=== PATIENT | male | born 1955 | race African-American/Black ===

== ENCOUNTER 2020-03-12 20:48 | Inpatient (IN) | payer MEDICARE, MEDICAID ==
[~2020-03-12] VITALS: Ht 172.7 cm; Wt 72.6 kg
[2020-03-12 21:11] LABS: BASOPHILS % 0.9 % (0.0-2.0); EOSINOPHILS % 14.3 % (0.0-5.0); HEMOGLOBIN. 9.5 g/dL (14.0-18.0); MEAN CORPUSCULAR HEMOGLOBIN 33.3 pg (28.0-32.0); MEAN CORPUSCULAR VOLUME 94.5 fL (80.0-94.0); MEAN PLATELET VOLUME 10.2 fl (7.4-10.4); MONOCYTES % 9.3 % (2.0-8.0); NEUTROPHILS % 63.5 % (40.0-76.0); PLATELET 105 x1000/uL (130-400); RED BLOOD CELL COUNT 2.86 mill/uL (4.7-6.1); RED CELL DISTRIBUTION WIDTH 17.5 % (11.6-14.6)
[2020-03-12 21:17] LABS: CHLORIDE 102 mEq/L (98-107)
[2020-03-12 21:19] LABS: INR 1.1; PROTHROMBIN TIME 12.1 sec (9.6-11.0)
[2020-03-12] MEDS ORDERED: ASPIRIN 81MG TABLET PO ONE (21:45)
[2020-03-12] MEDS ORDERED: MORPHINE SULFATE 2 MG/ML CPJ (NOT FOR IM USE) IV PRN (23:15)
[2020-03-12] MEDS ORDERED: DEXTROSE 50% WATER 50ML SYRINGE IV PRN (23:15)
[2020-03-12] MEDS ORDERED: DOCUSATE SODIUM 100MG CAPSULE PO PRN (23:15)
[2020-03-12] MEDS ORDERED: ACETAMINOPHEN 325MG TABLET PO PRN (23:15)
[2020-03-12] MEDS ORDERED: GUAIFENESIN 200MG/10ML SUGAR FREE UDC PO PRN (23:15)
[2020-03-12] MEDS ORDERED: LORAZEPAM 2MG/ML CPJ IV PRN (23:15)
[2020-03-12] MEDS ORDERED: MAGNESIUM/ALUMINUM HYDROXIDE/SIMETHICONE 30ML UDC PO PRN (23:15)
[2020-03-12] MEDS ORDERED: HYDROCODONE/ACETAMINOPHEN 10/325MG TABLET PO PRN (23:15)
[2020-03-12] MEDS ORDERED: DIPHENHYDRAMINE 50MG/ML VIAL IV PRN (23:15)
[2020-03-12] MEDS ORDERED: ONDANSETRON HCL 4MG/2ML INJ IV PRN (23:15)
[2020-03-12] MEDS ORDERED: HYDRALAZINE 20MG/ML VIAL IV PRN (23:15)
[2020-03-12] MEDS ORDERED: IPRATROPIUM/ALBUTEROL 0.5-3(2.5)MG/3ML NEB NEB PRN (23:15)
[2020-03-12 23:50] VITALS: BP 138/87
[2020-03-13] VITALS: BP 138/87
[2020-03-13] MEDS ORDERED: POTASSIUM CHLORIDE 20MEQ TABLET SR PO NR (01:00)
[2020-03-13 04:00] VITALS: BP 177/86
[2020-03-13] MEDS: SODIUM CHLORIDE 0.9% INJ 3ML FLUSH IVF SCH ×3 (05:08→22:14)
[2020-03-13 05:52] LABS: HEMATOCRIT. 24.9 % (42.0-52.0); HEMOGLOBIN. 8.8 g/dL (14.0-18.0); MEAN CORPUSCULAR HEMOGLOBIN 33.3 pg (28.0-32.0); MEAN CORPUSCULAR VOLUME 94.8 fL (80.0-94.0); MEAN PLATELET VOLUME 10.4 fl (7.4-10.4); PLATELET 89 x1000/uL (130-400); RED BLOOD CELL COUNT 2.63 mill/uL (4.7-6.1)
[2020-03-13 05:58] LABS: CHLORIDE 103 mEq/L (98-107)
[2020-03-13 06:08] LABS: CREATINE KINASE 90 IU/L (39-308)
[2020-03-13 06:11] LABS: CREATINE KINASE MB FRACTION 2.2 ng/mL (0.5-3.6)
[2020-03-13] MEDS: BLOOD SUGAR DIAGNOSTIC STRIP TEST SCH ×4 (06:53→21:57)
[2020-03-13] MEDS: INSULIN LISPRO 100 UNITS/ML SUBCUT SCH ×4 (07:37→22:12)
[2020-03-13] MEDS: ENOXAPARIN 30MG/0.3ML SYR SUBCUT SCH (08:41)
[2020-03-13] MEDS ORDERED: SEVE800T8 MT (09:52)
[2020-03-13] MEDS ORDERED: HYDR100T26 PO (09:52)
[2020-03-13] MEDS ORDERED: ASPI81TA47 PO (09:53)
[2020-03-13] MEDS ORDERED: FOLI0.8T23 MT (09:54)
[2020-03-13] MEDS ORDERED: FOLI0.8T42 MT (09:54)
[2020-03-13] MEDS ORDERED: ISOS20TA8 MT (09:54)
[2020-03-13] MEDS ORDERED: AMLO10TA80 PO (09:55)
[2020-03-13] MEDS ORDERED: LISI40TA4 PO (09:55)
[2020-03-13 11:48] LABS: PLATELET ESTIMATE SLIGHTLY DECREASED
[2020-03-13 12:00] VITALS: BP 182/92
[2020-03-13] MEDS: LISINOPRIL 40MG TABLET PO SCH (12:47)
[2020-03-13] MEDS: ASPIRIN 81MG EC TABLET PO SCH (12:47)
[2020-03-13] MEDS: FOLIC ACID/VITAMIN B COMP W-C TABLET PO SCH (12:47)
[2020-03-13] MEDS: CLONIDINE 0.1MG TABLET PO PRN (12:47)
[2020-03-13] MEDS: AMLODIPINE 10MG TABLET PO SCH (12:48)
[2020-03-13] MEDS: SEVELAMER CARBONATE 800 MG TABLET PO SCH ×2 (12:48→17:09)
[2020-03-13] MEDS: HYDRALAZINE HCL 100MG TABLET PO SCH ×2 (13:28→22:13)
[2020-03-13] MEDS: ISOSORBIDE DINITRATE 20MG TABLET PO SCH ×2 (13:28→17:09)
[2020-03-13 14:34] VITALS: BP_SYST 134; BP_SYST 171; BP_DIAS 101; BP_DIAS 82
[2020-03-13 16:00] VITALS: BP 163/79
[2020-03-13 20:00] VITALS: BP 155/73
[2020-03-14] VITALS: BP 164/85
[2020-03-14 04:00] VITALS: BP 191/60
[2020-03-14] MEDS: HYDRALAZINE HCL 100MG TABLET PO SCH ×3 (06:49→21:52)
[2020-03-14] MEDS: SODIUM CHLORIDE 0.9% INJ 3ML FLUSH IVF SCH ×2 (06:49→21:51)
[2020-03-14] MEDS: INSULIN LISPRO 100 UNITS/ML SUBCUT SCH ×3 (06:59→21:00)
[2020-03-14] MEDS: BLOOD SUGAR DIAGNOSTIC STRIP TEST SCH ×3 (06:59→21:00)
[2020-03-14 08:00] VITALS: BP 177/89
[2020-03-14] MEDS: SEVELAMER CARBONATE 800 MG TABLET PO SCH ×2 (10:26→16:29)
[2020-03-14] MEDS: AMLODIPINE 10MG TABLET PO SCH (10:28)
[2020-03-14] MEDS: ASPIRIN 81MG EC TABLET PO SCH (10:29)
[2020-03-14] MEDS: ISOSORBIDE DINITRATE 20MG TABLET PO SCH ×2 (10:30→16:29)
[2020-03-14] MEDS: FOLIC ACID/VITAMIN B COMP W-C TABLET PO SCH (10:30)
[2020-03-14] MEDS: LISINOPRIL 40MG TABLET PO SCH (10:31)
[2020-03-14] MEDS: ENOXAPARIN 30MG/0.3ML SYR SUBCUT SCH (10:36)
[2020-03-14 12:00] VITALS: BP 154/87
[2020-03-14 16:00] VITALS: BP 173/70
[2020-03-14 16:57] LABS: BASOPHILS % 1.1 % (0.0-2.0); EOSINOPHILS % 13.7 % (0.0-5.0); HEMATOCRIT. 26.7 % (42.0-52.0); HEMOGLOBIN. 9.2 g/dL (14.0-18.0); LYMPHOCYTES % 13.4 % (20.0-50.0); MEAN PLATELET VOLUME 10.8 fl (7.4-10.4); MONOCYTES % 11.6 % (2.0-8.0); NEUTROPHILS % 60.2 % (40.0-76.0); PLATELET 97 x1000/uL (130-400); RED BLOOD CELL COUNT 2.79 mill/uL (4.7-6.1)
[2020-03-14 20:42] VITALS: BP 161/80
[2020-03-15] VITALS (7 sets, daily range): BP systolic 156–178; BP diastolic 79–94
[2020-03-15 06:00] LABS: BASOPHILS % 1.3 % (0.0-2.0); EOSINOPHILS % 14.9 % (0.0-5.0); HEMATOCRIT. 25.7 % (42.0-52.0); LYMPHOCYTES % 13.9 % (20.0-50.0); MEAN CORPUSCULAR HEMOGLOBIN 33.1 pg (28.0-32.0); MEAN CORPUSCULAR VOLUME 94.5 fL (80.0-94.0); MEAN PLATELET VOLUME 10.3 fl (7.4-10.4); MONOCYTES % 10.4 % (2.0-8.0); NEUTROPHILS % 59.5 % (40.0-76.0); PLATELET 95 x1000/uL (130-400); RED BLOOD CELL COUNT 2.73 mill/uL (4.7-6.1); RED CELL DISTRIBUTION WIDTH 18.1 % (11.6-14.6)
[2020-03-15] MEDS: SODIUM CHLORIDE 0.9% INJ 3ML FLUSH IVF SCH ×3 (06:00→22:11)
[2020-03-15] MEDS: HYDRALAZINE HCL 100MG TABLET PO SCH ×3 (06:07→22:11)
[2020-03-15] MEDS: BLOOD SUGAR DIAGNOSTIC STRIP TEST SCH ×4 (06:07→20:51)
[2020-03-15] MEDS: INSULIN LISPRO 100 UNITS/ML SUBCUT SCH ×4 (07:07→20:51)
[2020-03-15] MEDS: SEVELAMER CARBONATE 800 MG TABLET PO SCH ×3 (08:47→17:58)
[2020-03-15] MEDS: ASPIRIN 81MG EC TABLET PO SCH (08:47)
[2020-03-15] MEDS: FOLIC ACID/VITAMIN B COMP W-C TABLET PO SCH (08:47)
[2020-03-15] MEDS: LISINOPRIL 40MG TABLET PO SCH (08:47)
[2020-03-15] MEDS: AMLODIPINE 10MG TABLET PO SCH (08:47)
[2020-03-15] MEDS: ISOSORBIDE DINITRATE 20MG TABLET PO SCH ×3 (08:47→17:58)
[2020-03-15] MEDS: ENOXAPARIN 30MG/0.3ML SYR SUBCUT SCH ×2 (08:49→12:10)
[2020-03-15] MEDS ORDERED: EPOETIN ALFA 4000UNITS/ML VIAL SUBCUT SCH (21:00)
[2020-03-16] MEDS: CLONIDINE 0.1MG TABLET PO PRN (00:54)
[2020-03-16] MEDS: SODIUM CHLORIDE 0.9% INJ 3ML FLUSH IVF SCH ×3 (06:00→21:05)
[2020-03-16] MEDS: BLOOD SUGAR DIAGNOSTIC STRIP TEST SCH ×4 (07:07→21:06)
[2020-03-16] MEDS: HYDRALAZINE HCL 100MG TABLET PO SCH ×3 (07:15→21:05)
[2020-03-16] MEDS: INSULIN LISPRO 100 UNITS/ML SUBCUT SCH ×4 (07:50→21:00)
[2020-03-16 08:22] VITALS: BP 166/86
[2020-03-16] MEDS: SEVELAMER CARBONATE 800 MG TABLET PO SCH ×3 (10:09→17:51)
[2020-03-16] MEDS: FOLIC ACID/VITAMIN B COMP W-C TABLET PO SCH (10:09)
[2020-03-16] MEDS: ENOXAPARIN 30MG/0.3ML SYR SUBCUT SCH (10:09)
[2020-03-16] MEDS: ISOSORBIDE DINITRATE 20MG TABLET PO SCH ×3 (10:10→17:51)
[2020-03-16] MEDS: AMLODIPINE 10MG TABLET PO SCH (10:10)
[2020-03-16] MEDS: ASPIRIN 81MG EC TABLET PO SCH (10:10)
[2020-03-16] MEDS: LISINOPRIL 40MG TABLET PO SCH ×2 (10:10→21:05)
[2020-03-16 12:03] VITALS: BP 161/84
[2020-03-16 15:43] VITALS: BP 159/77
[2020-03-16 20:00] VITALS: BP 164/80
[2020-03-17] VITALS: BP 169/84
[2020-03-17] MEDS: CLONIDINE 0.1MG TABLET PO PRN (01:09)
[2020-03-17 04:00] VITALS: BP 162/81
[2020-03-17] MEDS: HYDRALAZINE HCL 100MG TABLET PO SCH (06:14)
[2020-03-17] MEDS: SODIUM CHLORIDE 0.9% INJ 3ML FLUSH IVF SCH (06:15)
[2020-03-17] MEDS: BLOOD SUGAR DIAGNOSTIC STRIP TEST SCH ×2 (06:26→12:20)
[2020-03-17 06:53] LABS: BASOPHILS % 1.7 % (0.0-2.0); EOSINOPHILS % 16.3 % (0.0-5.0); HEMATOCRIT. 24.1 % (42.0-52.0); HEMOGLOBIN. 8.4 g/dL (14.0-18.0); LYMPHOCYTES % 17.8 % (20.0-50.0); MEAN CORPUSCULAR HEMOGLOBIN 32.7 pg (28.0-32.0); MEAN CORPUSCULAR VOLUME 94.3 fL (80.0-94.0); NEUTROPHILS % 54.2 % (40.0-76.0); PLATELET 93 x1000/uL (130-400); RED BLOOD CELL COUNT 2.56 mill/uL (4.7-6.1); RED CELL DISTRIBUTION WIDTH 17.5 % (11.6-14.6)
[2020-03-17] MEDS: INSULIN LISPRO 100 UNITS/ML SUBCUT SCH ×2 (07:50→12:50)
[2020-03-17 08:00] VITALS: BP 169/89
[2020-03-17] MEDS: ISOSORBIDE DINITRATE 20MG TABLET PO SCH (08:31)
[2020-03-17] MEDS: ASPIRIN 81MG EC TABLET PO SCH (08:32)
[2020-03-17] MEDS: FOLIC ACID/VITAMIN B COMP W-C TABLET PO SCH (08:32)
[2020-03-17] MEDS: LISINOPRIL 40MG TABLET PO SCH (08:32)
[2020-03-17] MEDS: SEVELAMER CARBONATE 800 MG TABLET PO SCH (08:32)
[2020-03-17] MEDS: AMLODIPINE 10MG TABLET PO SCH (08:32)
[2020-03-17] MEDS: ENOXAPARIN 30MG/0.3ML SYR SUBCUT SCH (09:00)
[2020-03-17 12:42] VITALS: BP 169/89
== END 2020-03-17 13:50 | disposition home health service (06) | DRG 45 ==
LOC: ER 20:48 → 6WST 23:02 → EDBEDREQTM 23:08 → EDBEDREQ 23:08 → ENRESERV 23:14
PROVIDERS: ADMIT Internal Medicine; ATTEND Internal Medicine
PROC: 5A1D70Z Performance of Urinary Filtration, Intermittent, Less than 6 Hours Per Day (ICD-10-PCS; 2020-03-15)
PROC: 4A10X4Z Monitoring of Central Nervous Electrical Activity, External Approach (ICD-10-PCS; principal; 2020-03-16)
DX: I63.81 Other cerebral infarction due to occlusion or stenosis of small artery (principal); I13.2 Hypertensive heart and chronic kidney disease with heart failure and with stage 5 chronic kidney disease, or end stage renal disease; D69.6 Thrombocytopenia, unspecified; E11.22 Type 2 diabetes mellitus with diabetic chronic kidney disease; E44.1 Mild protein-calorie malnutrition; N18.6 End stage renal disease; G81.94 Hemiplegia, unspecified affecting left nondominant side; D63.1 Anemia in chronic kidney disease; E87.6 Hypokalemia; I50.9 Heart failure, unspecified; R47.81 Slurred speech; Z68.24 Body mass index [BMI] 24.0-24.9, adult; Z99.2 Dependence on renal dialysis
CPT/HCPCS: 36415; 70551; 71045; 80048; 80053; 80061; 82550; 82553; 82962; 84484; 85025; 93005; 93880; 93970; 95816; 97110; 97116; 97162; 97166; 99285; J0360; J0885; J1650; J1815

== ENCOUNTER 2020-04-28 17:52 | Emergency (ER) | payer MEDICARE, MEDICAID ==
[~2020-04-28] VITALS: Ht 172.7 cm; Wt 75.0 kg
[~2020-04-28 17:52] MED LIST: AMLO10TA80 PO; ASPI81TA47 PO; FOLI0.8T23 MT; HYDR100T26 PO; ISOS20TA8 MT; SEVE800T8 MT
[2020-04-28 18:14] VITALS: BP 175/84
[2020-04-28 18:34] LABS: BASOPHILS % 1.3 % (0.0-2.0); EOSINOPHILS % 8.1 % (0.0-5.0); HEMOGLOBIN. 8.1 g/dL (14.0-18.0); LYMPHOCYTES % 7.4 % (20.0-50.0); MEAN CORPUSCULAR HEMOGLOBIN 32.5 pg (28.0-32.0); MEAN CORPUSCULAR VOLUME 92.7 fL (80.0-94.0); MEAN PLATELET VOLUME 9.7 fl (7.4-10.4); MONOCYTES % 13.4 % (2.0-8.0); NEUTROPHILS % 69.8 % (40.0-76.0); PLATELET 140 x1000/uL (130-400); RED BLOOD CELL COUNT 2.48 mill/uL (4.7-6.1); RED CELL DISTRIBUTION WIDTH 14.6 % (11.6-14.6)
[2020-04-28 18:40] LABS: CHLORIDE 100 mEq/L (98-107)
== END 2020-04-28 22:09 | disposition home or self-care (01) ==
LOC: ER 17:52
DX: R55 Syncope and collapse (principal); I13.2 Hypertensive heart and chronic kidney disease with heart failure and with stage 5 chronic kidney disease, or end stage renal disease; E11.22 Type 2 diabetes mellitus with diabetic chronic kidney disease; N18.6 End stage renal disease; I50.9 Heart failure, unspecified; Z99.2 Dependence on renal dialysis; Z79.899 Other long term (current) drug therapy; Z79.2 Long term (current) use of antibiotics
CPT/HCPCS: 36415; 71045; 80053; 83880; 84484; 85025; 93005; 99285

== ENCOUNTER 2020-07-03 17:31 | Inpatient (IN) | payer MEDICARE, MEDICAID ==
[~2020-07-03] VITALS: Ht 172.7 cm; Wt 59.9 kg
[2020-07-03] MEDS: HYDRALAZINE HCL 100MG TABLET PO SCH ×2 (14:00→22:00)
[2020-07-03 20:16] LABS: CHLORIDE 94 mEq/L (98-107)
[2020-07-03 20:20] LABS: HEMATOCRIT. 37.1 % (42.0-52.0); HEMOGLOBIN. 12.6 g/dL (14.0-18.0); INR 1.4; MEAN CORPUSCULAR HEMOGLOBIN 33.5 pg (28.0-32.0); MEAN CORPUSCULAR VOLUME 98.4 fL (80.0-94.0); MEAN PLATELET VOLUME 10.8 fl (7.4-10.4); PLATELET 90 x1000/uL (130-400); PROTHROMBIN TIME 14.4 sec (9.6-11.0); RED BLOOD CELL COUNT 3.77 mill/uL (4.7-6.1); RED CELL DISTRIBUTION WIDTH 19.8 % (11.6-14.6)
[2020-07-03] MEDS ORDERED: ONDANSETRON HCL 4MG/2ML INJ IV PRN (21:00)
[2020-07-03] MEDS ORDERED: MAGNESIUM/ALUMINUM HYDROXIDE/SIMETHICONE 30ML UDC PO PRN (21:00)
[2020-07-03] MEDS ORDERED: DOCUSATE SODIUM 100MG CAPSULE PO PRN (21:00)
[2020-07-03] MEDS ORDERED: GUAIFENESIN 200MG/10ML SUGAR FREE UDC PO PRN (21:00)
[2020-07-03 21:06] LABS: PLATELET ESTIMATE DECREASED
[2020-07-03] MEDS ORDERED: DEXTROSE 50% WATER 50ML SYRINGE IV PRN (21:30)
[2020-07-03] MEDS ORDERED: DEXTROSE 50% WATER 50ML SYRINGE IV ONE (21:30)
[2020-07-03] MEDS ORDERED: INSULIN REGULAR (HUMULIN R) 300UNITS/3ML IV ONE (21:30)
[2020-07-03] MEDS ORDERED: SODIUM POLYSTYRENE SULFONATE 15 G/60 ML BOT PO ONE (21:30)
[2020-07-04 01:20] VITALS: BP_SYST 188; BP_SYST 202; BP_DIAS 116
[2020-07-04] MEDS: HYDRALAZINE HCL 100MG TABLET PO SCH ×4 (02:51→22:19)
[2020-07-04] MEDS: LOSARTAN POTASSIUM 100 MG TABLET PO SCH ×2 (02:51→20:40)
[2020-07-04] MEDS ORDERED: AMLODIPINE 10MG TABLET PO SCH ×2 (03:00→09:00)
[2020-07-04 04:00] VITALS: BP 178/97
[2020-07-04] MEDS: CLONIDINE 0.1MG TABLET PO PRN ×2 (05:03→16:13)
[2020-07-04] MEDS: BLOOD SUGAR DIAGNOSTIC STRIP TEST SCH ×2 (06:02→11:38)
[2020-07-04] MEDS ORDERED: SEVELAMER CARBONATE 800 MG TABLET PO SCH ×2 (07:00→09:00)
[2020-07-04] MEDS: INSULIN LISPRO 100 UNITS/ML SUBCUT SCH ×2 (07:35→11:38)
[2020-07-04 08:03] VITALS: BP 181/75
[2020-07-04] MEDS: ISOSORBIDE DINITRATE 20MG TABLET PO SCH ×3 (08:09→16:11)
[2020-07-04] MEDS: ASPIRIN 325MG EC TABLET PO SCH (08:10)
[2020-07-04] MEDS: CARVEDILOL 6.25 MG TABLET PO SCH ×2 (08:10→20:41)
[2020-07-04] MEDS: FOLIC ACID/VITAMIN B COMP W-C TABLET PO SCH (08:16)
[2020-07-04] MEDS ORDERED: HYDRALAZINE HCL 100MG TABLET PO SCH (09:00)
[2020-07-04] MEDS ORDERED: FOLIC ACID/VITAMIN B COMP W-C TABLET PO SCH (09:00)
[2020-07-04] MEDS ORDERED: ASPIRIN 81MG EC TABLET PO SCH (09:00)
[2020-07-04] MEDS ORDERED: ISOSORBIDE DINITRATE 20MG TABLET PO SCH (09:00)
[2020-07-04 09:10] LABS: HEMATOCRIT. 32.2 % (42.0-52.0); HEMOGLOBIN. 11.2 g/dL (14.0-18.0); MEAN CORPUSCULAR HEMOGLOBIN 33.4 pg (28.0-32.0); MEAN CORPUSCULAR VOLUME 95.9 fL (80.0-94.0); MEAN PLATELET VOLUME 9.7 fl (7.4-10.4); PLATELET 76 x1000/uL (130-400); RED BLOOD CELL COUNT 3.35 mill/uL (4.7-6.1); RED CELL DISTRIBUTION WIDTH 20.3 % (11.6-14.6)
[2020-07-04 09:25] LABS: CHLORIDE 94 mEq/L (98-107)
[2020-07-04 09:33] LABS: PHOSPHORUS 2.9 mg/dL (2.5-4.9)
[2020-07-04 09:34] LABS: LDL CHOLESTEROL 53 mg/dL (5-100)
[2020-07-04 09:36] LABS: HDL CHOLESTEROL 62 mg/dL (40-59)
[2020-07-04 12:00] VITALS: BP 170/89
[2020-07-04 16:06] VITALS: BP 179/72
[2020-07-04 18:06] LABS: PLATELET ESTIMATE DECREASED
[2020-07-04 20:00] VITALS: BP 167/93
[2020-07-04] MEDS ORDERED: LAMIVUDINE 150MG TABLET PO SCH (21:00)
[2020-07-04] MEDS ORDERED: EFAVIRENZ 600 MG TABLET PO SCH (21:00)
[2020-07-04] MEDS ORDERED: ABACAVIR SULFATE 300MG TABLET PO SCH (21:00)
[2020-07-05] VITALS: BP 171/100
[2020-07-05] MEDS: CLONIDINE 0.1MG TABLET PO PRN (01:12)
[2020-07-05] MEDS: HYDRALAZINE HCL 100MG TABLET PO SCH (06:43)
[2020-07-05 07:25] LABS: HEMATOCRIT. 34.4 % (42.0-52.0); HEMOGLOBIN. 11.9 g/dL (14.0-18.0); MEAN CORPUSCULAR HEMOGLOBIN 33.3 pg (28.0-32.0); MEAN CORPUSCULAR VOLUME 96.6 fL (80.0-94.0); MEAN PLATELET VOLUME 10.1 fl (7.4-10.4); PLATELET 71 x1000/uL (130-400); RED BLOOD CELL COUNT 3.56 mill/uL (4.7-6.1); RED CELL DISTRIBUTION WIDTH 20.6 % (11.6-14.6)
[2020-07-05 07:57] LABS: CHLORIDE 92 mEq/L (98-107)
[2020-07-05 08:00] VITALS: BP 125/100
[2020-07-05 08:19] LABS: PHOSPHORUS 3.7 mg/dL (2.5-4.9)
[2020-07-05 10:38] LABS: PLATELET ESTIMATE DECREASED
[2020-07-05] MEDS ORDERED: COR6 PO (11:14)
[2020-07-05 12:00] VITALS: BP 170/90
[2020-07-05] MEDS: ISOSORBIDE DINITRATE 20MG TABLET PO SCH ×2 (12:12→12:13)
[2020-07-05] MEDS: CARVEDILOL 6.25 MG TABLET PO SCH (12:12)
[2020-07-05] MEDS: ASPIRIN 325MG EC TABLET PO SCH (12:12)
[2020-07-05] MEDS: FOLIC ACID/VITAMIN B COMP W-C TABLET PO SCH (12:12)
== END 2020-07-05 14:06 | disposition home or self-care (01) | DRG 861 ==
LOC: ER 17:31 → MICUSO 20:41 → EDBEDREQ 20:44 → 7WST 07-04 01:42 → 8WST 07-04 16:50
PROVIDERS: ADMIT Family Medicine; ATTEND Family Medicine
PROC: 5A1D70Z Performance of Urinary Filtration, Intermittent, Less than 6 Hours Per Day (ICD-10-PCS; principal; 2020-07-04)
DX: Z20.828 Contact with and (suspected) exposure to other viral communicable diseases (principal); E87.5 Hyperkalemia; I13.2 Hypertensive heart and chronic kidney disease with heart failure and with stage 5 chronic kidney disease, or end stage renal disease; N18.6 End stage renal disease; E87.1 Hypo-osmolality and hyponatremia; E83.39 Other disorders of phosphorus metabolism; E11.22 Type 2 diabetes mellitus with diabetic chronic kidney disease; D63.1 Anemia in chronic kidney disease; K21.9 Gastro-esophageal reflux disease without esophagitis; R05 Cough; E05.90 Thyrotoxicosis, unspecified without thyrotoxic crisis or storm; B19.20 Unspecified viral hepatitis C without hepatic coma; D68.9 Coagulation defect, unspecified; D69.6 Thrombocytopenia, unspecified; N25.81 Secondary hyperparathyroidism of renal origin; I50.32 Chronic diastolic (congestive) heart failure; Z99.2 Dependence on renal dialysis; Z82.49 Family history of ischemic heart disease and other diseases of the circulatory system; Z86.73 Personal history of transient ischemic attack (TIA), and cerebral infarction without residual deficits; Z68.20 Body mass index [BMI] 20.0-20.9, adult; Z87.01 Personal history of pneumonia (recurrent); E44.0 Moderate protein-calorie malnutrition
CPT/HCPCS: 36415; 71045; 80053; 80061; 82962; 83036; 83880; 84100; 84484; 85025; 87635; 93005; 96374; 99291; J1815

== ENCOUNTER 2020-08-09 16:57 | Inpatient (IN) | payer MEDICARE, MEDICAID ==
[~2020-08-09] VITALS: Ht 172.7 cm; Wt 62.1 kg
[~2020-08-09 16:57] MED LIST changes: +COR6 PO
[2020-08-09] MEDS ORDERED: SODIUM CHLORIDE 0.9% 1,000 ML IV ONE ×2 (17:09→21:30)
[2020-08-09 17:36] LABS: HEMATOCRIT. 37.7 % (42.0-52.0); MEAN CORPUSCULAR HEMOGLOBIN 35.8 pg (28.0-32.0); MEAN PLATELET VOLUME 10.5 fl (7.4-10.4); PLATELET 104 x1000/uL (130-400); RED BLOOD CELL COUNT 3.62 mill/uL (4.7-6.1); RED CELL DISTRIBUTION WIDTH 18.1 % (11.6-14.6)
[2020-08-09 17:41] LABS: CHLORIDE 98 mEq/L (98-107)
[2020-08-09 17:44] LABS: INR 1.1; PROTHROMBIN TIME 11.7 sec (9.6-11.0)
[2020-08-09] MEDS ORDERED: ONDANSETRON HCL 4MG/2ML INJ IV ONE (17:45)
[2020-08-09] MEDS ORDERED: LIDOCAINE 1%/EPI 1:100,000 10 ML VIAL IJ ONE ×2 (17:45→17:50)
[2020-08-09 18:04] LABS: PLATELET ESTIMATE DECREASED
[2020-08-09] MEDS ORDERED: ONDANSETRON HCL 4MG/2ML INJ IV PRN ×2 (19:00→21:15)
[2020-08-09] MEDS ORDERED: GUAIFENESIN 200MG/10ML SUGAR FREE UDC PO PRN (19:00)
[2020-08-09] MEDS ORDERED: IPRATROPIUM/ALBUTEROL 0.5-3(2.5)MG/3ML NEB NEB PRN (19:00)
[2020-08-09] MEDS ORDERED: DIPHENHYDRAMINE 50MG/ML VIAL IV PRN (19:00)
[2020-08-09] MEDS ORDERED: MAGNESIUM/ALUMINUM HYDROXIDE/SIMETHICONE 30ML UDC PO PRN (19:00)
[2020-08-09] MEDS ORDERED: NITROGLYCERIN 0.4MG TABLET SL SL PRN (19:00)
[2020-08-09] MEDS ORDERED: ACETAMINOPHEN 325MG TABLET PO PRN ×2 (19:00)
[2020-08-09] MEDS ORDERED: DOCUSATE SODIUM 100MG CAPSULE PO PRN (19:00)
[2020-08-09] MEDS ORDERED: BACITRACIN 50,000 UNITS/VIAL ONE (19:38)
[2020-08-09] MEDS ORDERED: LIDOCAINE HCL 1% 20ML VIAL (Pyxis) INJ ONE ×2 (19:38→19:58)
[2020-08-09] MEDS ORDERED: THROMBIN (BOVINE) 5000 UNITS/VIAL TOP ONE (19:38)
[2020-08-09] MEDS ORDERED: HEPARIN SODIUM 1,000 UNIT/1ML VIAL IV ONE ×2 (19:39→21:17)
[2020-08-09] MEDS ORDERED: BUPIVACAINE HCL/PF 0.5% (5MG/ML) 10ML ONE (19:39)
[2020-08-09] MEDS ORDERED: ROCURONIUM BROMIDE 10MG/ML VIAL 5ML IV ONE (19:55)
[2020-08-09] MEDS ORDERED: NEOSTIGMINE METHYLSULFATE 1MG/ML 10 ML VIAL ONE (19:55)
[2020-08-09] MEDS ORDERED: FENTANYL CITRATE/PF 50MCG/ML 2ML VIAL ONE (19:55)
[2020-08-09] MEDS ORDERED: GLYCOPYRROLATE 0.2 MG/ML 2ML VIAL ONE (19:55)
[2020-08-09] MEDS ORDERED: MIDAZOLAM HCL 2 MG/2 ML VIAL ONE (19:55)
[2020-08-09] MEDS ORDERED: PROPOFOL 200MG/20ML VIAL IV ONE (19:55)
[2020-08-09] MEDS ORDERED: PHENYLEPHRINE HCL 10 MG/ML 1ML (IV VIAL) IV ONE (19:56)
[2020-08-09] MEDS ORDERED: SUCCINYLCHOLINE CHLORIDE 200MG/10ML IV ONE (19:56)
[2020-08-09] MEDS ORDERED: ONDANSETRON HCL 4MG/2ML INJ ONE (19:56)
[2020-08-09] MEDS ORDERED: SODIUM CHLORIDE 0.9% 10ML VIAL ONE (19:56)
[2020-08-09] MEDS ORDERED: EPHEDRINE SULFATE 50MG/ML VIAL ONE (19:56)
[2020-08-09] MEDS ORDERED: CEFAZOLIN SODIUM 1000MG/VIAL ONE (19:56)
[2020-08-09] MEDS ORDERED: METOCLOPRAMIDE HCL 10MG/2ML VIAL ONE (19:56)
[2020-08-09] MEDS ORDERED: LIDOCAINE HCL/PF 1% 10 MG/ML 5ML VIAL ONE (19:56)
[2020-08-09] MEDS: ENOXAPARIN 30MG/0.3ML SYR SUBCUT SCH (20:00)
[2020-08-09] MEDS ORDERED: ROPIVACAINE HCL 10MG/ML 20 ML VIAL EPI ONE ×2 (20:19→20:20)
[2020-08-09] MEDS ORDERED: PIPERACILLIN/TAZ 3.375G PREMIX 50 ML IV SCH (20:45)
[2020-08-09] MEDS ORDERED: DESMOPRESSIN ACETATE 4MCG/ML AMP IV ONE (20:45)
[2020-08-09] MEDS ORDERED: HEPARIN 5000 UNITS/ML VIAL ONE (20:50)
[2020-08-09] MEDS ORDERED: DESMOPRESSIN ACETATE IVPB 20 MCG in SODIUM CHLORIDE 0.9% 50 ML IV ONE (21:00)
[2020-08-09] MEDS ORDERED: MEPERIDINE HCL/PF 25MG/ML CPJ IV PRN (21:15)
[2020-08-09] MEDS ORDERED: MORPHINE SULFATE 2 MG/ML CPJ (NOT FOR IM USE) IV PRN (21:15)
[2020-08-09] MEDS ORDERED: HYDROMORPHONE HCL/PF 2MG/ML CPJ IV PRN (21:15)
[2020-08-09] MEDS ORDERED: SKIN ADHESIVE 0.7 GM EA TOP ONE (21:31)
[2020-08-09] MEDS ORDERED: PIPERACILLIN/TAZOBACTAM 2.25 G in DEXTROSE 5% WATER 50 ML IV SCH (22:00)
[2020-08-09] MEDS ORDERED: VANCOMYCIN 1 G PREMIX 200 ML IV SCH (22:00)
[2020-08-10] VITALS (20 sets, daily range): BP systolic 146–193; BP diastolic 79–101
[2020-08-10 00:18] LABS: CREATINE KINASE MB FRACTION 3.4 ng/mL (0.5-3.6)
[2020-08-10] MEDS ORDERED: DESMOPRESSIN ACETATE IVPB 20 MCG in SODIUM CHLORIDE 0.9% 50 ML IV SCH (01:00)
[2020-08-10] MEDS: PIPERACILLIN/TAZOBACTAM 2.25 G in DEXTROSE 5% WATER 50 ML IV SCH ×2 (01:34→09:50)
[2020-08-10] MEDS ORDERED: VANCOMYCIN 1 G PREMIX 200 ML IV SCH (02:00)
[2020-08-10] MEDS: NITROGLYCERIN OINT 1GM/INCH UDPKT TD SCH ×3 (06:30→21:23)
[2020-08-10] MEDS: CARVEDILOL 3.125 MG TABLET PO SCH (06:31)
[2020-08-10] MEDS: HYDRALAZINE HCL 50MG TABLET PO SCH ×3 (06:31→21:23)
[2020-08-10 07:45] LABS: HEMATOCRIT. 36.1 % (42.0-52.0); HEMOGLOBIN. 12.7 g/dL (14.0-18.0); MEAN CORPUSCULAR HEMOGLOBIN 34.2 pg (28.0-32.0); MEAN CORPUSCULAR VOLUME 97.4 fL (80.0-94.0); RED BLOOD CELL COUNT 3.71 mill/uL (4.7-6.1); RED CELL DISTRIBUTION WIDTH 21.8 % (11.6-14.6)
[2020-08-10 08:04] LABS: CHLORIDE 100 mEq/L (98-107)
[2020-08-10 08:12] LABS: PHOSPHORUS 3.4 mg/dL (2.5-4.9)
[2020-08-10 08:13] LABS: CREATINE KINASE 69 IU/L (39-308); CREATINE KINASE MB FRACTION 3.4 ng/mL (0.5-3.6)
[2020-08-10] MEDS ORDERED: DEXT 5% WATER 100 ML IV SCH (09:15)
[2020-08-10] MEDS: LACTOBACILLUS GG CAPSULE PO SCH (09:45)
[2020-08-10] MEDS: ZINC SULFATE 220 MG ( 50 ) CAPSULE PO SCH (09:46)
[2020-08-10] MEDS: AMLODIPINE 10MG TABLET PO SCH (09:46)
[2020-08-10 09:52] LABS: PLATELET ESTIMATE DECREASED
[2020-08-10 10:02] LABS: MEAN PLATELET VOLUME 10.6 fl (7.4-10.4); PLATELET 86 x1000/uL (130-400)
[2020-08-10] MEDS: SEVELAMER CARBONATE 800 MG TABLET PO SCH ×3 (10:02→18:57)
[2020-08-10] MEDS: ASCORBIC ACID 500 MG TABLET PO SCH ×2 (10:11→21:20)
[2020-08-10] MEDS ORDERED: HEPARIN 1000 UNITS/ML 10ML ONE (11:58)
[2020-08-10] MEDS ORDERED: LIDOCAINE HCL 1% 20ML VIAL (Pyxis) INJ ONE (11:58)
[2020-08-10] MEDS ORDERED: SODIUM BICARBONATE 4% (2.4MEQ) 5ML VIAL IV ONE (11:58)
[2020-08-10] MEDS ORDERED: SODIUM POLYSTYRENE SULFONATE 15 G/60 ML BOT PO NR (12:00)
[2020-08-10] MEDS ORDERED: FENTANYL CITRATE/PF 50MCG/ML 2ML VIAL ONE (12:35)
[2020-08-10] MEDS ORDERED: FENTANYL CITRATE/PF 50MCG/ML 2ML VIAL IV ONE (13:15)
[2020-08-10] MEDS: ENOXAPARIN 30MG/0.3ML SYR SUBCUT SCH (20:00)
[2020-08-10] MEDS ORDERED: VANCOMYCIN 750 MG PREMIX 150 ML IV SCH (21:00)
[2020-08-10] MEDS: FAMOTIDINE 20MG TABLET PO SCH (23:40)
[2020-08-10] MEDS: CLONIDINE 0.1MG TABLET PO PRN (23:41)
[2020-08-11] VITALS (22 sets, daily range): BP systolic 144–184; BP diastolic 73–114
[2020-08-11] MEDS: PIPERACILLIN/TAZOBACTAM 2.25 G in DEXTROSE 5% WATER 50 ML IV SCH ×3 (01:37→18:15)
[2020-08-11 02:59] LABS: HEMATOCRIT. 28.5 % (42.0-52.0); HEMOGLOBIN. 9.8 g/dL (14.0-18.0); MEAN CORPUSCULAR HEMOGLOBIN 34.1 pg (28.0-32.0); MEAN CORPUSCULAR VOLUME 99.1 fL (80.0-94.0); MEAN PLATELET VOLUME 9.7 fl (7.4-10.4); PLATELET 74 x1000/uL (130-400); RED BLOOD CELL COUNT 2.87 mill/uL (4.7-6.1); RED CELL DISTRIBUTION WIDTH 21.3 % (11.6-14.6)
[2020-08-11 03:09] LABS: PHOSPHORUS 2.5 mg/dL (2.5-4.9)
[2020-08-11 03:26] LABS: PLATELET ESTIMATE MARKEDLY DECREASED
[2020-08-11] MEDS: CLONIDINE 0.1MG TABLET PO PRN ×2 (05:08→23:20)
[2020-08-11] MEDS: CARVEDILOL 3.125 MG TABLET PO SCH ×2 (05:42→18:16)
[2020-08-11] MEDS: NITROGLYCERIN OINT 1GM/INCH UDPKT TD SCH ×3 (05:42→19:50)
[2020-08-11] MEDS: HYDRALAZINE HCL 50MG TABLET PO SCH (05:43)
[2020-08-11] MEDS: ZINC SULFATE 220 MG ( 50 ) CAPSULE PO SCH (09:09)
[2020-08-11] MEDS: SEVELAMER CARBONATE 800 MG TABLET PO SCH ×3 (09:09→18:16)
[2020-08-11] MEDS: ASCORBIC ACID 500 MG TABLET PO SCH ×2 (09:09→19:49)
[2020-08-11] MEDS: LACTOBACILLUS GG CAPSULE PO SCH (09:09)
[2020-08-11] MEDS: AMLODIPINE 10MG TABLET PO SCH (09:10)
[2020-08-11 10:34] LABS: HEMOGLOBIN 9.5 g/dL (14.0-18.0)
[2020-08-11 10:45] LABS: INR 1.1; PROTHROMBIN TIME 11.8 sec (9.6-11.0)
[2020-08-11] MEDS ORDERED: DESMOPRESSIN ACETATE IVPB 21 MCG in SODIUM CHLORIDE 0.9% 50 ML IV NR (12:30)
[2020-08-11] MEDS: ISOSORBIDE DINITRATE 20MG TABLET PO SCH ×2 (13:09→18:16)
[2020-08-11] MEDS: HYDRALAZINE HCL 100MG TABLET PO SCH ×2 (13:09→19:50)
[2020-08-11] MEDS: FAMOTIDINE 20MG TABLET PO SCH (19:50)
[2020-08-11 23:16] LABS: HEMATOCRIT 29.7 % (42.0-52.0); HEMOGLOBIN 10.3 g/dL (14.0-18.0)
[2020-08-11 23:24] LABS: INR 1.1; PROTHROMBIN TIME 11.5 sec (9.6-11.0)
[2020-08-12] VITALS (12 sets, daily range): BP systolic 156–198; BP diastolic 65–96
[2020-08-12] MEDS: PIPERACILLIN/TAZOBACTAM 2.25 G in DEXTROSE 5% WATER 50 ML IV SCH ×3 (00:58→17:32)
[2020-08-12] MEDS: ZOLPIDEM TARTRATE 5MG TABLET PO PRN ×2 (03:48→22:27)
[2020-08-12] MEDS: NITROGLYCERIN OINT 1GM/INCH UDPKT TD SCH ×3 (05:44→20:34)
[2020-08-12] MEDS: HYDRALAZINE HCL 100MG TABLET PO SCH ×3 (05:44→21:09)
[2020-08-12 05:55] LABS: PHOSPHORUS 3.2 mg/dL (2.5-4.9)
[2020-08-12] MEDS ORDERED: CARVEDILOL 6.25 MG TABLET PO SCH (06:00)
[2020-08-12 06:06] LABS: HEMOGLOBIN. 9.5 g/dL (14.0-18.0); MEAN CORPUSCULAR HEMOGLOBIN 32.8 pg (28.0-32.0); MEAN CORPUSCULAR VOLUME 96.4 fL (80.0-94.0); MEAN PLATELET VOLUME 9.8 fl (7.4-10.4); PLATELET 67 x1000/uL (130-400); RED CELL DISTRIBUTION WIDTH 21.5 % (11.6-14.6)
[2020-08-12 07:21] LABS: PLATELET ESTIMATE DECREASED
[2020-08-12] MEDS: ZINC SULFATE 220 MG ( 50 ) CAPSULE PO SCH (08:32)
[2020-08-12] MEDS: ASCORBIC ACID 500 MG TABLET PO SCH ×2 (08:32→21:10)
[2020-08-12] MEDS: ISOSORBIDE DINITRATE 20MG TABLET PO SCH ×3 (08:32→17:31)
[2020-08-12] MEDS: AMLODIPINE 10MG TABLET PO SCH (08:33)
[2020-08-12] MEDS: LACTOBACILLUS GG CAPSULE PO SCH (08:33)
[2020-08-12] MEDS: SEVELAMER CARBONATE 800 MG TABLET PO SCH ×3 (10:16→18:00)
[2020-08-12] MEDS ORDERED: VANCOMYCIN 1 G PREMIX 200 ML IV SCH (17:00)
[2020-08-12] MEDS: CARVEDILOL 12.5MG TABLET PO SCH (17:26)
[2020-08-12] MEDS: CLONIDINE 0.1MG TABLET PO PRN (20:00)
[2020-08-12] MEDS: FAMOTIDINE 20MG TABLET PO SCH (21:09)
[2020-08-12] MEDS: TRAMADOL 50MG TABLET PO PRN (21:10)
[2020-08-13] VITALS (10 sets, daily range): BP systolic 143–195; BP diastolic 69–98
[2020-08-13] MEDS: PIPERACILLIN/TAZOBACTAM 2.25 G in DEXTROSE 5% WATER 50 ML IV SCH ×2 (01:52→10:32)
[2020-08-13] MEDS: TRAMADOL 50MG TABLET PO PRN (03:35)
[2020-08-13] MEDS: CLONIDINE 0.1MG TABLET PO PRN (03:38)
[2020-08-13] MEDS: NITROGLYCERIN OINT 1GM/INCH UDPKT TD SCH ×2 (05:23→14:08)
[2020-08-13] MEDS: HYDRALAZINE HCL 100MG TABLET PO SCH ×2 (05:23→14:08)
[2020-08-13] MEDS: CARVEDILOL 12.5MG TABLET PO SCH (05:24)
[2020-08-13 06:49] LABS: HEMATOCRIT. 27.6 % (42.0-52.0); HEMOGLOBIN. 9.6 g/dL (14.0-18.0); MEAN CORPUSCULAR HEMOGLOBIN 33.7 pg (28.0-32.0); MEAN CORPUSCULAR VOLUME 96.5 fL (80.0-94.0); MEAN PLATELET VOLUME 9.8 fl (7.4-10.4); PLATELET 69 x1000/uL (130-400); RED BLOOD CELL COUNT 2.86 mill/uL (4.7-6.1); RED CELL DISTRIBUTION WIDTH 21.3 % (11.6-14.6)
[2020-08-13 07:11] LABS: PHOSPHORUS 2.9 mg/dL (2.5-4.9)
[2020-08-13] MEDS: ZINC SULFATE 220 MG ( 50 ) CAPSULE PO SCH (08:36)
[2020-08-13] MEDS: ASCORBIC ACID 500 MG TABLET PO SCH (08:36)
[2020-08-13] MEDS: AMLODIPINE 10MG TABLET PO SCH (08:37)
[2020-08-13] MEDS: ISOSORBIDE DINITRATE 20MG TABLET PO SCH ×2 (08:37→14:07)
[2020-08-13] MEDS: LACTOBACILLUS GG CAPSULE PO SCH (08:37)
[2020-08-13 10:01] LABS: PLATELET ESTIMATE DECREASED
[2020-08-13] MEDS: SEVELAMER CARBONATE 800 MG TABLET PO SCH ×2 (10:33→14:22)
== END 2020-08-13 16:25 | disposition home health service (06) | DRG 182 ==
LOC: ER 16:57 → SUPCPDRO 18:48 → 5EST 19:00 → EDBEDREQ 19:05 → ENRESERV 19:47
PROVIDERS: ADMIT Internal Medicine; ATTEND Internal Medicine
PROC: 03L80ZZ Occlusion of Left Brachial Artery, Open Approach (ICD-10-PCS; principal; 2020-08-09)
PROC: 05WY0JZ Revision of Synthetic Substitute in Upper Vein, Open Approach (ICD-10-PCS; 2020-08-09)
PROC: 03WY0JZ Revision of Synthetic Substitute in Upper Artery, Open Approach (ICD-10-PCS; 2020-08-09)
PROC: 30233N1 Transfusion of Nonautologous Red Blood Cells into Peripheral Vein, Percutaneous Approach (ICD-10-PCS; 2020-08-09)
PROC: B548ZZA Ultrasonography of Superior Vena Cava, Guidance (ICD-10-PCS; 2020-08-10)
PROC: 0JH63XZ Insertion of Tunneled Vascular Access Device into Chest Subcutaneous Tissue and Fascia, Percutaneous Approach (ICD-10-PCS; 2020-08-10)
PROC: 02HV33Z Insertion of Infusion Device into Superior Vena Cava, Percutaneous Approach (ICD-10-PCS; 2020-08-10)
PROC: B5181ZA Fluoroscopy of Superior Vena Cava using Low Osmolar Contrast, Guidance (ICD-10-PCS; 2020-08-10)
PROC: 5A1D70Z Performance of Urinary Filtration, Intermittent, Less than 6 Hours Per Day (ICD-10-PCS; 2020-08-10)
PROC: 5A1D70Z Performance of Urinary Filtration, Intermittent, Less than 6 Hours Per Day (ICD-10-PCS; 2020-08-11)
DX: T82.838A Hemorrhage due to vascular prosthetic devices, implants and grafts, initial encounter (principal); E87.5 Hyperkalemia; N18.6 End stage renal disease; I16.1 Hypertensive emergency; G92 Toxic encephalopathy; D62 Acute posthemorrhagic anemia; E87.1 Hypo-osmolality and hyponatremia; E83.52 Hypercalcemia; Y83.8 Other surgical procedures as the cause of abnormal reaction of the patient, or of later complication, without mention of misadventure at the time of the procedure; E44.0 Moderate protein-calorie malnutrition; E78.5 Hyperlipidemia, unspecified; I12.0 Hypertensive chronic kidney disease with stage 5 chronic kidney disease or end stage renal disease; N25.81 Secondary hyperparathyroidism of renal origin; Z82.49 Family history of ischemic heart disease and other diseases of the circulatory system; Z86.73 Personal history of transient ischemic attack (TIA), and cerebral infarction without residual deficits; Z99.2 Dependence on renal dialysis; Y92.89 Other specified places as the place of occurrence of the external cause; Z79.82 Long term (current) use of aspirin; Z79.51 Long term (current) use of inhaled steroids; Z79.899 Other long term (current) drug therapy; Z68.20 Body mass index [BMI] 20.0-20.9, adult; Z21 Asymptomatic human immunodeficiency virus [HIV] infection status; E87.2 Acidosis
CPT/HCPCS: 36415; 36558; 71045; 76937; 77001; 80048; 80053; 80061; 80202; 82550; 82553; 83036; 83605; 83735; 84100; 84145; 84484; 85014; 85018; 85025; 85049; 85384; 86850; 86900; 86920; 93005; 93970; 96365; 97116; 97162; 99152; 99153; 99291; C1750; C1768; C1769; C1887; J0330; J0690; J1644; J2250; J2370; J2405; J2543; J2597; J2704; J2710; J2765; J2795; J3010; J3370; J3490; J7030; J7060; P9016; G0500